=== PATIENT | male | born 2000 | race Caucasian/White ===

== ENCOUNTER 2023-08-21 18:06 | Observation (INO) ==
[2023-08-21] MEDS ORDERED: OPTIRAY 320 125ml IV ONE (18:19)
[2023-08-21] MEDS ORDERED: levETIRAcetam 1,000 MG in 0.9 % SODIUM CHLORIDE 100 ML IV STA (18:22)
[2023-08-21] MEDS ORDERED: SODIUM CHLORIDE 0.9% 500 ML IV ONE (18:22)
--- NOTE | 2023-08-21 18:26 | Emergency Department Note ---
Impression & Plan Stroke-like episode ADMIT ED Provider Note HPI: History obtained from patient, EMS report, and girlfriend at the bedside. 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 where he underwent neurosurgical intervention on December 15, 2022, subsequent seizure disorder developed after neurosurgery and the patient is currently on Keppra. Presents to the emergency department today with abnormal sensation in his right upper extremity and a transient episode of aphasia. Patient states he believes the symptoms began sometime around 5:30 PM. On arrival here to the ED the patient was activated as a stroke alert from the field, and symptoms are now resolved. He states that shortly after he woke up from a nap he went to take a shower and began to feel some tingling sensation in his right upper extremity. He states that he called his girlfriend because he felt something was wrong and when he was talking to his girlfriend he felt like he could not speak in a normal pattern. She does confirm this account of the events and states that she contacted EMS when he called her. Patient is alert and oriented on arrival, he does not exhibit any focal deficits. ROS: - Per HPI Differential Diagnosis: Acute ischemic stroke, intracranial hemorrhage, TIA, seizure with postictal state, amongst other potential pathologies. *Outpatient medications and allergy history reviewed. *Pertinent external medical records reviewed -[facility] admission note dated 12/15/2022 PE: General: Alert HEENT: Normocephalic, trachea midline Eyes: Extraocular eye movement is intact, no scleral erythema Pulmonary: Clear to auscultation bilaterally, no wheezing Cardio: Regular rate and rhythm GI: Abdomen is soft to palpation : No suprapubic tenderness MSK: No evidence of trauma or malformation of the extremities, no edema Skin: No evidence of rash Neuro: Alert, no focal deficits, equal bilateral technical trainer strength, no drift of the upper extremities or lower extremities with testing against gravity, symmetrical facial movements are appreciated, there is no ataxia on [id number] testing bilaterally Psychiatric: Cooperative INDEPENDENT INTERPRETATIONS: night monitor: (As interpreted by myself): - An order was placed for continuous cardiac monitoring - Patient was noted to be in sinus rhythm with a rate of 95 EKG: (As interpreted by myself): Rate: 107 Rhythm: Sinus tachycardia Intervals: Within normal limits ST changes: No ST elevation Time: 1820 Interventions provided in ED: -IV Keppra bolus, IV fluid bolus NIH STROKE SCALE: 1A: Level of consciousness Alert; keenly responsive 0 1B: Ask month and age Both questions right 0 1C: 'Blink eyes' & 'squeeze hands' Performs both tasks 0 2: Horizontal extraocular movements Normal 0 3: Visual esquivel No visual loss 0 4: Facial palsy Normal symmetry 0 5A: Left arm motor drift No drift for 10 seconds 0 5B: Right arm motor drift No drift for 10 seconds 0 6A: Left leg motor drift No drift for 5 seconds 0 6B: Right leg motor drift No drift for 5 seconds 0 7: Limb Ataxia No ataxia 0 8: Sensation Normal; no sensory loss 0 9: Language/aphasia Normal; no aphasia 0 10: Dysarthria Normal 0 11: Extinction/inattention No abnormality 0 TOTAL NIH SCORE =0 Medical Decision Making: On arrival here to the ED the patient has an NIH score of 0. He is not considered a tPA candidate given symptomatic resolution in addition to history of intracranial hemorrhage. CT imaging of the head as well as CT angiography of the head and neck were obtained, CT imaging of the brain without contrast does not suggest acute intracranial hemorrhage and does favor / demonstrate postsurgical changes. CT angiography of the head and neck were obtained and per the interpreting radiologist, Dr. Dunn, there are several sylvian branches of the left MCA distribution that appear attenuated and vessel narrowing or occlusion cannot be completely ruled out. I did discuss these CT imaging findings with Dr. Dunn of radiology over the phone. He does not feel that there is any obvious occlusion, and extra-axial hyperdensity noted on CT imaging of the head without contrast favors postsurgical change. Patient's lab work is largely unremarkable, patient was given IV fluids as well as IV Keppra here in the ED. He denies any seizure-like activity but states he did wake up from a nap at about 5:[address] imaging findings, I did discuss the patient's presentation with on-call stroke neurology at [facility], Dr. Morris, she does not feel that the patient needs to be transferred to tertiary care for any aggressive intervention at this point given that his symptoms are completely resolved. She does recommend admission for observation and MRI imaging of the brain while inpatient. I discussed this with the patient and he is in agreement. Case was then discussed with the on- call hospitalist, Dr. Bynum, and the patient was placed for admission in stable condition. I did speak with the patient's mother, Kina, on the phone, she is updated and aware of the patient's admission and plan of care. Consultants/Discussions held with other healthcare providers: -Dr. Morris, Stroke Neurology at [facility] -Dr. Bynum, Hospitalist -Dr. Dunn, Radiology Disposition discussion held by myself with: -Patient and patient's mother on the phone as well as the patient's girlfriend at the bedside * CRITICAL CARE TIME: ( 53 ) minutes -Time spent at the bedside and management of patient with complex medical history and a new onset strokelike episode requiring activation of stroke alert, discussion with stroke neurology, discussion with radiology in regards to interpretation of CT imaging, discussion with significant other at the bedside and the patient's mother on the phone, discussion with hospitalist service and arrangement of admission. Diagnosis: 1. Strokelike symptoms, acute 2. History of traumatic brain injury/intracranial hemorrhage status post neurosurgery Disposition: Admission Charanjit Vanegas DO Emergency Medicine Past Med/Surg History Medical History No acute medical problems Surgical History No pertinent past surgical history Social History Smoking Status: Never smoker Preferred Language: Arabic Feels Safe at Home: Yes Allergies Allergies Allergy/AdvReac Type Severity Reaction Status Date / Time No Known Allergies Allergy Verified 12/15/22 01:56 Home Meds Home Medications Medication Instructions Recorded Confirmed levetiracetam 500 mg tablet 1,000 mg PO BID 08/21/23 08/21/23 Results & Data (ED) Vital Signs Vital Signs - 24 hr 08/21/23 18:17 08/21/23 18:18 08/21/23 18:19 Pulse Rate 108 H 101 H Pulse Rate [Apical] Pulse Rate from SpO2 Sensor Respiratory Rate 19 22 Respiratory Effort / Characteristics Non-Labored Respiratory Depth Normal Blood Pressure 152/90 H 152/90 H Blood Pressure [Right Arm] Blood Pressure Mean 110 108 Blood Pressure Mean [Right Arm] Pulse Oximetry 99 Oxygen Delivery Method Room Air Sepsis Recent Fever Within 48 Hours No Sepsis New/Unexplained Change in Mental Status No Sepsis Action Taken by Nursing No Action Required Pulse Oximetry Post Tiitration 08/21/23 18:19 08/21/23 18:21 08/21/23 18:29 Pulse Rate 117 H 112 H Pulse Rate [Apical] Pulse Rate from SpO2 Sensor 117 H Respiratory Rate 20 Respiratory Effort / Characteristics Respiratory Depth Blood Pressure Blood Pressure [Right Arm] Blood Pressure Mean Blood Pressure Mean [Right Arm] Pulse Oximetry 100 Oxygen Delivery Method Room Air Sepsis Recent Fever Within 48 Hours Sepsis New/Unexplained Change in Mental Status Sepsis Action Taken by Nursing Pulse Oximetry Post Tiitration 100 08/21/23 18:30 08/21/23 18:30 08/21/23 18:30 Pulse Rate 98 H Pulse Rate [Apical] 103 H Pulse Rate from SpO2 Sensor 99 H Respiratory Rate 22 18 Respiratory Effort / Characteristics Non-Labored Spontaneous Respiratory Depth Normal Blood Pressure 126/81 Blood Pressure [Right Arm] 126/81 Blood Pressure Mean 110 Blood Pressure Mean [Right Arm] 96 Pulse Oximetry 100 100 Oxygen Delivery Method Room Air Sepsis Recent Fever Within 48 Hours Sepsis New/Unexplained Change in Mental Status Sepsis Action Taken by Nursing Pulse Oximetry Post Tiitration 08/21/23 18:45 08/21/23 18:45 08/21/23 19:00 Pulse Rate 97 H 89 Pulse Rate [Apical] Pulse Rate from SpO2 Sensor 94 H 89 Respiratory Rate 18 18 Respiratory Effort / Characteristics Respiratory Depth Blood Pressure 141/80 H Blood Pressure [Right Arm] Blood Pressure Mean 111 Blood Pressure Mean [Right Arm] Pulse Oximetry 100 99 Oxygen Delivery Method Sepsis Recent Fever Within 48 Hours Sepsis New/Unexplained Change in Mental Status Sepsis Action Taken by Nursing Pulse Oximetry Post Tiitration 08/21/23 19:00 08/21/23 19:15 08/21/23 19:15 Pulse Rate 89 Pulse Rate [Apical] Pulse Rate from SpO2 Sensor 89 Respiratory Rate 12 Respiratory Effort / Characteristics Respiratory Depth Blood Pressure 132/84 140/81 Blood Pressure [Right Arm] Blood Pressure Mean 100 93 Blood Pressure Mean [Right Arm] Pulse Oximetry 99 Oxygen Delivery Method Sepsis Recent Fever Within 48 Hours Sepsis New/Unexplained Change in Mental Status Sepsis Action Taken by Nursing Pulse Oximetry Post Tiitration 08/21/23 19:30 08/21/23 19:30 08/21/23 19:45 Pulse Rate 93 H Pulse Rate [Apical] Pulse Rate from SpO2 Sensor 91 H Respiratory Rate 17 Respiratory Effort / Characteristics Respiratory Depth Blood Pressure 125/82 143/85 H Blood Pressure [Right Arm] Blood Pressure Mean 98 106 Blood Pressure Mean [Right Arm] Pulse Oximetry 98 Oxygen Delivery Method Sepsis Recent Fever Within 48 Hours Sepsis New/Unexplained Change in Mental Status Sepsis Action Taken by Nursing Pulse Oximetry Post Tiitration 08/21/23 19:45 Pulse Rate 90 Pulse Rate [Apical] Pulse Rate from SpO2 Sensor 92 H Respiratory Rate 16 Respiratory Effort / Characteristics Respiratory Depth Blood Pressure Blood Pressure [Right Arm] Blood Pressure Mean Blood Pressure Mean [Right Arm] Pulse Oximetry 96 Oxygen Delivery Method Sepsis Recent Fever Within 48 Hours Sepsis New/Unexplained Change in Mental Status Sepsis Action Taken by Nursing Pulse Oximetry Post Tiitration Laboratory Data 08/21/23 18:23 08/21/23 18:23 Lab Results 08/21/23 08/21/23 Range/Units 18:18 18:23 WBC 8.63 (4.8-10.8) K/ul RBC 5.25 (4.70-6.10) M/uL Hgb 15.9 (14.0-18.0) g/dl Hct 45.8 (42.0-52.0) % MCV 87.2 (80.0-100.0) fL MCH 30.3 (25.0-34.0) pg MCHC 34.7 (32.0-36.0) g/dL RDW Std Deviation 39.8 (36.4-46.3) fL RDW Coeff of Raj 12.6 (11.5-14.5) % Plt Count 250 (130-400) K/uL MPV 10.3 (9.4-12.4) fL Immature Gran % (Auto) 0.2 % Neut % (Auto) 64.3 % Lymph % (Auto) 23.9 % Norman % (Auto) 9.8 % Eos % (Auto) 1.5 % Baso % (Auto) 0.3 % Neut # (Auto) 5.54 (1.40-6.50) K/uL Lymph # (Auto) 2.06 (1.20-3.40) K/uL Norman # (Auto) 0.85 H (0.11-0.59) K/uL Eos # (Auto) 0.13 (0.00-0.50) K/uL Baso # (Auto) 0.03 (0.00-0.20) K/uL Immature Gran # (Auto) 0.02 (0.01-0.20) K/uL PT 11.7 (9.0-12.0) Seconds INR 1.1 (0.9-1.1) APTT 26.2 (21.0-31.0) Seconds PTT Ratio 0.9 Sodium 136 (136-145) mmol/L Potassium 3.5 (3.5-5.1) mmol/L Chloride 103 (98-107) mmol/L Carbon Dioxide 27 (21-32) mmol/L Anion Gap 6 (3-11) BUN 24 H (6-23) mg/dl Creatinine 1.01 (0.6-1.4) mg/dl Est Cr Clr Drug Dosing 118.5 ml/min Est GFR ( Amer) 121.8 ml/min Est GFR (Non-Af Amer) 105.1 ml/min BUN/Creatinine Ratio 23.8 H (10-20) Glucose 109 H (70-99(Fasting)) mg/dl POC Glucose 101 H (70-99) mg/dl Calcium 9.3 (8.6-10.3) mg/dl Magnesium 2.1 (1.7-2.4) mg/dl Total Bilirubin 0.5 (0.2-1.0) mg/dl AST 16 (13-39) U/L ALT 12 (7-52) U/L Alkaline Phosphatase 70 (34-104) U/L Troponin I High Sens 2.8 (0-20) pg/ml Total Protein 6.8 (6.0-8.3) gm/dl Albumin 4.6 (3.4-5.0) gm/dl Globulin 2.2 L (2.5-4.0) gm/dl Albumin/Globulin Ratio 2.1 H (0.9-2) Administered Medications Discontinued Medications Levetiracetam 1,000 mg/ Sodium (Chloride) 110 mls @ 440 mls/hr IV NOW STA Stop: 08/21/23 18:36 Last Admin: 08/21/23 18:40 Dose: 440 mls/hr Documented By: KEILY Sodium Chloride (Nss) 500 mls @ 999 mls/hr IV .Q31M ONE Stop: 08/21/23 18:52 Last Admin: 08/21/23 18:37 Dose: 999 mls/hr Documented By: KEILY Ioversol (Optiray 320 125ml) 119 ml IV ONCE ONE Stop: 08/21/23 18:20 Last Admin: 08/21/23 18:19 Dose: 119 ml Documented By: ABHIJEET Imaging Data Radiologist's Impression: Head CT 08/21/23 18:08 CT OF THE HEAD WITHOUT CONTRAST CLINICAL HISTORY: neuro deficit, acute stroke suspected. Right-sided weakness. COMPARISON STUDY: Head CT December 15, 2022. TECHNIQUE: Helical axial images of the head were obtained without IV contrast. Automated exposure control was utilized for the study. A dose lowering technique was utilized adhering to the principles of ALARA. FINDINGS: Ventricular system is unremarkable. Basal cisterns are patent. Encephalomalacia within the left temporal lobe is chronic and corresponds to traumatic findings on head CT December 15, 2022. Left calvarial postoperative findings are noted. Small hypodense operative bed fluid collection measures 7 mm in thickness. There is also extra-axial hyperdensity within the operative bed which measures 6 mm in thickness. This favors postsurgical change. No extra- axial hematoma could appear similar although is considered less likely. There are no findings to suggest acute dural sinus thrombosis or acute territorial infarct. No acute calvarial fracture is present. Visualized portions of the sinuses and mastoid air cells are clear. IMPRESSION: 1. Post traumatic and postsurgical findings within the left temporal lobe and overlying calvarium, as described above. Extra-axial hyperdensity within the operative bed favors postsurgical change. Although less likely, an extra axial hematoma could appear similar and correlation with prior postsurgical head CT is recommended. In the absence of prior studies, short-term follow-up head CT in 12 to 24 hours is recommended. 2. No evidence for acute infarct by CT. ACT 112: Negative or not required by law. Electronically signed by: Raimundo Dunn M.D. 08/21/2023 6:26 PM Head CTA 08/21/23 18:08 CTA ANGIOGRAPHY OF THE HEAD CLINICAL HISTORY: neuro deficit, acute stroke suspected COMPARISON STUDY: Head CT December 15, 2022. TECHNIQUE: Helical axial images of the head were obtained following uneventful intravenous administration of 119 cc of Optiray. Sagittal and coronal reconstructions were viewed as well as maximal intensity projections on an independent 3-D workstation. Automated exposure control was utilized for the study. A dose lowering technique was utilized adhering to the principles of ALARA. CT DOSE: 1124.61 mGy.cm FINDINGS: Please note that the head CT will be reported separately. This better depicts postoperative and postoperative findings within the left cerebral hemisphere. The bilateral M1 segments are patent. Several sylvian branches of the left MCA appear attenuated. This could be artifactual. Evaluation is suboptimal given venous opacification. Bilateral A1 and A2 segments are patent. The right vertebral artery ends in PICA. There is persistence of the right posterior cerebral artery. IMPRESSION: 1. Several sylvian branches of the left middle cerebral artery appear attenuated. This may be artifactual. However, vessel narrowing/occlusion cannot be excluded and the findings could be correlated with MRI of the brain to exclude acute infarct. 2. Postoperative and post traumatic findings within the left cerebral hemisphere, better depicted on the head CT will be reported separately. ACT 112: Negative or not required by law. Electronically signed by: Raimundo Dunn M.D. 08/21/2023 6:45 PM Neck CTA 08/21/23 18:08 CT ANGIOGRAPHY OF THE NECK WITH CONTRAST CLINICAL HISTORY: neuro deficit, acute stroke suspected COMPARISON STUDY: Cervical spine CT December 15, 2022. Technique: CT angiography of the carotid and vertebral arteries was obtained using Optiray and 3D reconstruction on an independent workstation. NASCET criteria was utilized. Automated exposure control was utilized for the study. A dose lowering technique was utilized adhering to the principles of ALARA. Findings: Visualized portions of the lung apices are unremarkable. There is no cervical lymphadenopathy. No cervical spine fracture is noted. The left vertebral artery is dominant and patent. The right vertebral artery is somewhat diminutive and likely ends in PICA. The bilateral common carotid and cervical internal carotid arteries are patent. No aneurysm or dissection within the neck. IMPRESSION: Unremarkable CTA of the neck. ACT 112: Negative or not required by law. Electronically signed by: Raimundo Dunn M.D. 08/21/2023 6:36 PM Discharge Plan Visit Data Chief Complaint: Stroke Alert ED Provider: Charanjit Vanegas Discharge Problem: Stroke-like episode Forms Stand Alone Forms: [facility] Prescriptions Prescriptions: No Action levetiracetam 500 mg tablet 1,000 mg PO BID Referrals Referrals: [facility] [Primary Care Provider] -
--- NOTE | 2023-08-21 18:29 | CT Scan Report ---
CT OF THE HEAD WITHOUT CONTRAST CLINICAL HISTORY: neuro deficit, acute stroke suspected. Right-sided weakness. COMPARISON STUDY: Head CT December 15, 2022. TECHNIQUE: Helical axial images of the head were obtained without IV contrast. Automated exposure con trol was utilized for the study. A dose lowering technique was utilized adhering to the principles o f ALARA. FINDINGS: Ventricular system is unremarkable. Basal cisterns are patent. Encephalomalacia within the left temporal lobe is chronic and corresponds to traumatic findings on head CT December 15, 2022. Left c alvarial postoperative findings are noted. Small hypodense operative bed fluid collection measures 7 mm in thickness. There is also extra-axial hyperdensity within the operative bed which measures 6 mm in thickness. This favors postsurgical change. No extra-axial hematoma could appear similar although is considered less likely. There are no findings to suggest acute dural sinus thrombosis or acute ter ritorial infarct. No acute calvarial fracture is present. Visualized portions of the sinuses and mast oid air cells are clear. IMPRESSION: 1. Post traumatic and postsurgical findings within the left temporal lobe and overlying calvarium, as described above. Extra-axial hyperdensity within the operative bed favors postsurgical change. Altho ugh less likely, an extra axial hematoma could appear similar and correlation with prior postsurgical head CT is recommended. In the absence of prior studies, short-term follow-up head CT in 12 to 24 ho urs is recommended. 2. No evidence for acute infarct by CT. ACT 112: Negative or not required by law. Electronically signed by: Raimundo Dunn M.D. 08/21/2023 6:26 PM
[2023-08-21 18:30] LABS: Basophils # (auto) 0.03 K/uL (0.00-0.20); Basophils % (auto) 0.3 %; Eosinophils # (auto) 0.13 K/uL (0.00-0.50); Eosinophils % (auto) 1.5 %; Hematocrit (blood only) 45.8 % (42.0-52.0); Hemoglobin 15.9 g/dl (14.0-18.0); Immature Granulocytes # (auto) 0.02 K/uL (0.01-0.20); Immature Granulocytes % (auto) 0.2 %; Lymphocytes # (auto) 2.06 K/uL (1.20-3.40); Lymphocytes % (auto) 23.9 %; Mean Corpuscular Hemoglobin 30.3 pg (25.0-34.0); Mean Corpuscular Hgb Conc 34.7 g/dL (32.0-36.0); Mean Corpuscular Volume 87.2 fL (80.0-100.0); Mean Platelet Volume 10.3 fL (9.4-12.4); Monocytes # (auto) 0.85 K/uL (0.11-0.59); Monocytes % (auto) 9.8 %; Neutrophils # (auto) 5.54 K/uL (1.40-6.50); Neutrophils % (auto) 64.3 %; Platelet Count 250 K/uL (130-400); RDW Coefficient of Variation 12.6 % (11.5-14.5); RDW Standard Deviation 39.8 fL (36.4-46.3); Red Blood Count 5.25 M/uL (4.70-6.10); White Blood Count 8.63 K/ul (4.8-10.8)
--- NOTE | 2023-08-21 18:38 | CT Scan Report ---
CT ANGIOGRAPHY OF THE NECK WITH CONTRAST CLINICAL HISTORY: neuro deficit, acute stroke suspected COMPARISON STUDY: Cervical spine CT December 15, 2022. Technique: CT angiography of the carotid and vertebral arteries was obtained using Optiray and 3D rec onstruction on an independent workstation. NASCET criteria was utilized. Automated exposure control was utilized for the study. A dose lowering technique was utilized adhering to the principles of ALA RA. Findings: Visualized portions of the lung apices are unremarkable. There is no cervical lymphadenopat hy. No cervical spine fracture is noted. The left vertebral artery is dominant and patent. The right vertebral artery is somewhat diminutive and likely ends in PICA. The bilateral common carotid and cer vical internal carotid arteries are patent. No aneurysm or dissection within the neck. IMPRESSION: Unremarkable CTA of the neck. ACT 112: Negative or not required by law. Electronically signed by: Raimundo Dunn M.D. 08/21/2023 6:36 PM
[2023-08-21 18:44] LABS: INR 1.1 (0.9-1.1); Partial Thromboplastin Ratio 0.9; Partial Thromboplastin Time 26.2 Seconds (21.0-31.0); Prothrombin Time 11.7 Seconds (9.0-12.0)
--- NOTE | 2023-08-21 18:47 | CT Scan Report ---
CTA ANGIOGRAPHY OF THE HEAD CLINICAL HISTORY: neuro deficit, acute stroke suspected COMPARISON STUDY: Head CT December 15, 2022. TECHNIQUE: Helical axial images of the head were obtained following uneventful intravenous administr ation of 119 cc of Optiray. Sagittal and coronal reconstructions were viewed as well as maximal inten sity projections on an independent 3-D workstation. Automated exposure control was utilized for the study. A dose lowering technique was utilized adhering to the principles of ALARA. CT DOSE: 1124.61 mGy.cm FINDINGS: Please note that the head CT will be reported separately. This better depicts postoperative and postoperative findings within the left cerebral hemisphere. The bilateral M1 segments are patent . Several sylvian branches of the left MCA appear attenuated. This could be artifactual. Evaluation i s suboptimal given venous opacification. Bilateral A1 and A2 segments are patent. The right vertebral artery ends in PICA. There is persistence of the right posterior cerebral artery. IMPRESSION: 1. Several sylvian branches of the left middle cerebral artery appear attenuated. This may be artifac tual. However, vessel narrowing/occlusion cannot be excluded and the findings could be correlated wit h MRI of the brain to exclude acute infarct. 2. Postoperative and post traumatic findings within the left cerebral hemisphere, better depicted on the head CT will be reported separately. ACT 112: Negative or not required by law. Electronically signed by: Raimundo Dunn M.D. 08/21/2023 6:45 PM
[2023-08-21 18:48] LABS: Albumin Level 4.6 gm/dl (3.4-5.0); Bilirubin,Total 0.5 mg/dl (0.2-1.0); Calcium 9.3 mg/dl (8.6-10.3); Magnesium 2.1 mg/dl (1.7-2.4); Potassium 3.5 mmol/L (3.5-5.1)
[2023-08-21 18:54] LABS: Albumin Globulin Ratio 2.1 (0.9-2); BUN Creatinine Ratio 23.8 (10-20); Creatinine Clr Calc Pharmacy 118.5 ml/min; Est GFR (African American) 121.8 ml/min; Est GFR (Non-African American) 105.1 ml/min; Globulin 2.2 gm/dl (2.5-4.0); Total Protein 6.8 gm/dl (6.0-8.3)
[2023-08-21 18:58] LABS: Troponin I High Sensitivity 2.8 pg/ml (0-20)
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
[2023-08-21] MEDS ORDERED: ONDANSETRON INJ 2 MG/ML 2 ML VIAL IV PRN (20:55)
[2023-08-21] MEDS ORDERED: PHARMACIST DISCHARGE MED REC CONSULT PRN (20:55)
[2023-08-21] MEDS ORDERED: ACETAMINOPHEN 325 MG TAB PO PRN (20:55)
[2023-08-21] MEDS: levETIRAcetam 500 MG TAB PO SCH (21:45)
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
[2023-08-22] MEDS: levETIRAcetam 500 MG TAB PO SCH (09:56)
--- NOTE | 2023-08-22 10:36 | Medical Student Consultation ---
Date of Consultation August 22, 2023 Assessment & Plan (1) Complicated migraine: Plan - Continue on Keppra 500mg, 2 tabs BID - take 500-1000 mg extra Keppra if Sx recur -Obtain baseline brain scans following previous neurosurgeries for comparison to current scans - Obtain brain MRI to definitively rule out acute infarct as planned. Shahid Pino, MS IV Supervising Attestation Addendum: pt seen and examined. agree with above. 23 yo male with overall picture consistent with migraine syndrome and likely complicated migraine event. He likely triggered headache after doing "balloon blowing" yesterday and caused hyperventilation syndrome in setting of hx of craniotomy and TBI. told pt to avoid doing hyperventilation/blowing which can trigger headache. once mri brain is done and if now acute finding, he can be discharged and f/u as outpt. Pt has neurologist in [place] and they want to change neurologist to locally. I gave pt and family our clinic info for making f/u appt. routine f/u in few weeks is reasonable. marisabel toro MD staff neurologist History of Present Illness Reason for Consultation: RUE & Facial Numbness/Tingling, Headache, Slurred Speech Attending Physician: Marquis Tavares MD History of Present Illness Jeff is a 23 y/o M w/ a h/o TBI (s/p hemicraniotomy, PEEK cranioplasty), post- operative seizures, & migraine w/ aura seen in the ED the morning following an episode of RUE & facial numbess tingling w/ slurred speech following a headache. The pt had been blowing up balloons yesterday (08/21/23) for a birthday libertarian w/ his girlfriend and noted the onset of a mild headache w/ malaise. He states that he went to take a nap, and upon waking, experienced an acute exacerbation of his headache w/ mild blurring of vision, followed by RUE & facial numbess/tingling, R-sided tremor, & slurred speech. He called his girlfriend who then called 911. His girlfriend notes upon seeing him shortly after the onset of his Sx that he had L-sided conjunctival injection and possible mild rhinorrhea or epistaxis. He states that his Sx resolved within 30 mins and have not recurred since his arrival to the ED. This morning (08/22/23) his headache has abated. He denies any current Sx. He denies confusion (both before and after the event), muscle weakness, gait disturbance/loss of balance, drug use, smoking, vape use. He has no known h/o HTN. Here at [facility] Jeff has had a brain CT and CTA, both of which are unremarkable for acute infarct. Jeff does have a PMH of TBI and is s/p hemicraniotomy (12/15/22) & PEEK cranioplasty (01/2023). He has a noted h/o associated post-operative seizures, as well as a noted h/o migraines before which he experiences blurry vision. He has had one previous episode of R-hand numbess over the last summer which resolved spontaneously. Given Jeff's transient Sx of headache preceded by blurred vision, unilateral RUE/facial numbess/tingling, slurred speech, L-sided conjuctival injection and apparent rhinorrhea in conjunction with his h/o migraine, TBI, as well as his surgical hx, it's likely that hyperventilation while blowing up balloons precipitated a trigeminal cephalgia or complex migraine. Recommended obtaining baseline brain CT from previous encounters to compare with current brain CT, as well as obtaining a brain MRI to correlate any ambiguous CT findings from this encounter in order to definitively rule out acute infarct. Also recommended that Jeff take 3-4 extra tabs ([id number] mg more) of Keppra in addition to his 2000 mg QD dosage if these Sx recur. Also recommened that Jeff should refrain from blowing up balloons in the future due to the associated changes in serum chemistry known to precipitate migraine attacks. Allergies Allergy/AdvReac Type Severity Reaction Status Date / Time No Known Allergies Allergy Verified 12/15/22 01:56 Home Medications Medication Instructions Recorded Confirmed Type levetiracetam 500 mg tablet 1,000 mg PO BID 08/21/23 08/21/23 History Patient History Medical History History of traumatic brain injury Surgical History History of craniotomy Family History (Updated 08/22/23 @ 00:02 by Yasmin Bynum DO) Other No pertinent family history in first degree relatives Social History (Updated 08/22/23 @ 00:03 by Yasmin Bynum DO) Smoking Status: Never smoker Hx Alcohol Use: No Hx Substance Use: No Preferred Language: Venezuelan Communication Ability: Effective Duplicate Maker Required: No Current Living Situation: Family Current Living Situation Comment: Parents Other Information That Helps Us Care for You: No Feels Safe at Home: Yes Safety Concerns: Feels Safe At This Time Assistive Devices: Glasses Review of Systems Review of Systems: All systems reviewed & are unremarkable except as noted in HPI & below Physical Exam Physical Exam: GEN: NAD, pleasant, cooperative CVS: RRR CHEST: CTAB, No signs of resp distress, on room air ABD: Soft, NTTP NEURO MENTAL STATUS:AAOx3, memory intact, fund of knowledge appropriate LANG/SPEECH: Naming and repetition intact, fluent, follows 3-step commands CRANIAL NERVES: II: Pupils equal and reactive, no RAPD, no VF deficits III, IV, : EOM intact, no gaze preference or deviation, no nystagmus. V: normal sensation in V1, V2, and V3 segments bilaterally VII: no asymmetry, no nasolabial fold flattening VIII: normal hearing to speech IX, X: normal palatal elevation, no uvular deviation XI: 5/5 head turn and 5/5 shoulder shrug bilaterally XII: midline tongue protrusion MOTOR: 5/5 muscle power in Rt shoulder abductor s/adductors, elbow flexors/extensors, wrist flexors/extensors, finger abductors/adductors. 5/5 in Rt hipflexors/extensors, knee flexors/extensors, ankle dorsiflexors and planter flexors. 5/5 muscle power in Lt shoulder abductor s/adductors, elbow flexors/extensors, wrist flexors/extensors, finger abductors/adductors. 5/5 in Lt hipflexors/extensors, knee flexors/extensors, ankle dorsiflexors and planter flexors. SENSORY: Normal to touch all limbs No hemineglect, no extinction to double sided stimulation (visual & tactile) Romberg absent COORD: No tremor, no dysmetria STATION: normal stance, no truncal ataxia GAIT: Normal Results & Data Vital Signs (Past 12 Hours) Vital Signs Temp Pulse Pulse Resp BP Pulse Ox O2 Del Method 08/22/23 08:54 80 08/22/23 08:27 67 12 109/60 95 Room Air 08/22/23 07:44 36.5 C 80 16 108/60 96 Room Air 08/22/23 05:00 64 18 89/39 L 95 Room Air 08/22/23 03:00 59 L 18 95 Room Air 08/22/23 00:00 80 16 107/59 L 95 Room Air Diagnostic Findings CT and CTA unremarkable for acute infarct
[2023-08-22] MEDS ORDERED: GADOBUTROL 65ML VIAL IV ONE (12:12)
--- NOTE | 2023-08-22 12:46 | Magnetic Resonance Report ---
MRI OF THE BRAIN COMBO CLINICAL HISTORY: Aphasia. Right upper extremity tingling. Facial numbness. Possible stroke. COMPARISON STUDY: CT scans of the brain dated 08/21/2023 an 12/15/2022. TECHNIQUE: MRI of the brain was performed utilizing various T1 and T2-weighted sequences in the axial , sagittal, and coronal planes. Contrast-enhanced sequences were acquired following the administratio n of 7.5 cc of Gadavist. FINDINGS: Brain parenchyma: Again seen is postsurgical change left-sided craniectomy. A small pocket of CSF sig nal intensity extra-axial fluid deep to the craniectomy site measures up to 8 mm in thickness as seen on axial image #17. There is soft tissue thickening and enhancement deep to the craniectomy site whi ch measures up to 5 mm in thickness. Foci of left left frontal, temporal, and parietal encephalomalac ia are consistent with previous trauma with corresponding foci of hemosiderin deposition. There is no clear evidence of acute hemorrhage. No mass effect is seen. No restricted diffusion is identified ty pical for acute ischemia. No enhancing mass lesion is seen on the postcontrast images. Tate-white mat ter differentiation is preserved. The cerebellar tonsils are normal in configuration. Ventricles, sulci, and cisterns: Normal in configuration. Pituitary and sella: Unremarkable. Intracranial vasculature: Normal flow voids are maintained at the skull base. Orbits: The bony orbits are grossly intact. Orbital contents are normal in appearance. Sinuses and mastoids: Clear. Calvarium: There is postsurgical change from left-sided craniectomy and plate placement. No destructi ve calvarial lesion is seen. Cervical cord: Partially visualized cervical spinal cord is normal in morphology and signal intensity . IMPRESSION: 1. Postsurgical and posttraumatic change as above. 2. There is no clear evidence of acute hemorrhage. There is no mass effect or evidence of acute ische kavya, 3. CSF attenuation fluid is seen along the left convexity deep to the craniectomy site, as is soft ti ssue thickening/enhancement. These findings likely represent expected postsurgical change. Correlate with any more recent prior outside imaging studies to assess for stability. ACT 112: Negative or not required by law. Electronically signed by: Cameron Dorantes M.D. 08/22/2023 12:44 PM
[2023-08-22 13:23] LABS: iSTAT Creatinine 1.1 mg/dl (0.6-1.3); iSTAT Hemoglobin 15.3 g/dl (14.0-18.0); iSTAT Ionized Calcium 1.14 mmol/l (1.12-1.32); iSTAT Potassium 3.5 mmol/L (3.3-5.0)
--- NOTE | 2023-08-22 13:38 | Electrocardiogram Report ---
Test Reason : Blood Pressure : / mmHG Vent. Rate : 107 BPM Atrial Rate : 107 BPM P-R Int : 176 ms QRS Dur : 088 ms QT Int : 316 ms P-R-T Axes : 067 089 016 degrees QTc Int : 421 ms Sinus tachycardia Borderline ECG No previous ECGs available Confirmed by Pavan King ([id number]) on 08/22/2023 1:38:37 PM Referred By: REFERRED SELF Confirmed By:Robert King
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
== END 2023-08-22 15:44 | disposition home or self-care (01) ==
LOC: EDINP 18:06 → ED 18:06 → SUATTDRO 20:00 → EDINP 20:54